=== PATIENT | female | born 1950 | race Caucasian/White ===

== ENCOUNTER 2016-09-10 13:25 | Inpatient (IN) | payer OTHER, MEDICARE ==
[~2016-09-10] VITALS: Ht 170.2 cm; Wt 60.0 kg
[~2016-09-10 13:25] MED LIST: ATOR40TA16 PO; BENA20TA PO
[2016-09-11] MEDS ORDERED: MULTTAB67 PO (14:45)
[2016-09-11] MEDS ORDERED: VITA100018 PO (14:45)
[2016-09-14] MEDS ORDERED: LACTATED RINGER'S 1000 ML IV SCH (07:15)
[2016-09-14] MEDS ORDERED: METOPROLOL TARTRATE 25 MG TAB PO PRN (07:15)
[2016-09-14] MEDS ORDERED: INSULIN HUMAN REGULAR 1,000 UNITS/10 ML VIAL SQ PRN (07:15)
[2016-09-14] MEDS ORDERED: ceFAZolin 1,000 MG/NS 100 ML IV SCH ×2 (07:15)
[2016-09-14] MEDS ORDERED: SODIUM CHLORID 0.9% 500 ML IV SCH (07:15)
[2016-09-14 07:23] VITALS: BP 167/82; PULSE 77; RESP 18; TEMP 98.1; O2SAT 99
[2016-09-14] MEDS ORDERED: GENTAMICIN SULFATE 80 MG/2 ML VIAL ONE (07:36)
[2016-09-14] MEDS ORDERED: GELFOAM SIZE 100 ONE (07:36)
[2016-09-14] MEDS ORDERED: THROMBIN (TOPICAL) 5,000 UNIT VIAL ONE (07:36)
[2016-09-14] MEDS ORDERED: LIDOCAINE 1%/EPINEPHrine 1:100,000 SOLN 20 ML VIAL ONE (07:37)
[2016-09-14] MEDS ORDERED: ACETAMINOPHEN 1000 MG/100 ML VIAL IV ONE (08:17)
[2016-09-14] MEDS ORDERED: MORPHINE SULFATE 4 MG/ML INJ IV PRN (08:30)
[2016-09-14] MEDS ORDERED: HYDROmorphone HCL PF 1 MG/ML VIAL IV PRN (08:30)
[2016-09-14] MEDS ORDERED: ACETAMINOPHEN/HYDROcodone 325 MG/5 MG TAB PO PRN (08:30)
[2016-09-14] MEDS ORDERED: NALOXONE HCL 0.4 MG/ML AMP IV PRN (08:30)
[2016-09-14] MEDS ORDERED: PROMETHAZINE INJ 25 MG/ML VIAL IM PRN (08:30)
[2016-09-14] MEDS ORDERED: ONDANSETRON HCL 4 MG/2 ML VIAL IV PRN (08:30)
[2016-09-14] MEDS ORDERED: cloNIDine HCL 0.1 MG TAB NG PRN (08:45)
[2016-09-14] MEDS ORDERED: ENALAPRILAT 1.25 MG/ML VIAL IV PUSH PRN (08:45)
--- NOTE | 2016-09-14 11:09 | PD.OP ---
Operative Report Date of Surgery: Sep 14, 2016 Preoperative Diagnosis: (1) Hydrocephalus Normal Pressure hydrocephalus Postoperative Diagnosis: (1) Hydrocephalus Normal Pressure hydrocephalus Procedure: Right frontal bear hole for ventriculoperitoneal shunt placement Anesthesia: Gen. endotracheal Surgeon: Ambrose Bar Qa Engineer(s): Haseeb Boo Operation and Findings: Procedure in detail: The patient was brought into the operating room and general endotracheal anesthesia induced without difficulty. Brown catheter, and sequential compression devices were placed. Lines were established by anesthesia. The patient was placed in the supine position on the 3080 table with the head turned towards the left on the horseshoe headrest. All extremities were appropriately padded The right side of the head, neck, chest, and abdomen were shaved with the clippers and sterilely prepped and draped. Appropriate procedure was performed with all personal present and in agreement 1% Xylocaine with epinephrine was used for local infiltration of the incision sites. The initial incision was made in a curvilinear fashion at the right frontal region approximately 3-4 cm lateral to the midline in the mid pupillary line and approximately 1 cm anterior to the coronal suture and carried sharply down to the cranium. The jacquard twine polisher operator was used to place a small bur hole and the dura was incised with the 15 blade knife and edges coagulated with the bipolar forceps. Small incision was made in the cortical surface with the bipolar. The second incision was made at the right upper quadrant of the abdomen just below the costal margin and carried sharply down to the muscle fascia which was incised transversely and the muscle fiber split revealing the peritoneum which was grasped with mosquito forceps and incised with the 15 blade knife. The peritoneal cavity was freely entered with the [place] dissector. A 4-0 Nurolon pursestring suture was placed at the peritoneal incision. The shunt passer was used to pass the distal peritoneal catheter already attached to the distal shunt valve and secured with 2-0 silk suture from the frontal scalp incision to the abdominal incision via a small third right occipital scalp incision. The valve was preset to 120 mm water pressure prior to placement, with the setting verified with preoperative x-ray. The Codman Bactiseal ventricular catheter was then passed to a depth of approximately 6 cm intracranial with clear colorless cerebrospinal fluid obtained and a single pass. Specimen of CSF was collected. The ventricular catheter was cut to the appropriate length and secured to the proximal end of the valve with the 2-0 silk tie. After spontaneous CSF flow was noted through the distal peritoneal catheter, the abdominal catheter was cut to a length of approximately 15 cm intraperitoneal length and placed in the peritoneal cavity and pursestring suture secured. All incision sites were well irrigated with antibiotic irrigation. Closure was performed with 3-0 Vicryl running for the abdominal muscle fascia and interrupted for the abdominal subcutaneous closure and scalp galeal closure. The scalp was closed with 4-0 nylon running suture with 4-0 Vicryl running for the abdominal subcuticular closure. A dressing of sterile Mastisol and Steri- Strips was placed at each incision site. The patient was taken to recovery room in stable condition. All counts were correct at the end of the case. Estimated blood loss was 50 cc Specimen of CSF was sent for routine microbiology. Ambrose Bar MD Sep 14, 2016 11:09
[2016-09-14] MEDS ORDERED: fentaNYL CITRATE 250 MCG/5 ML AMP ONE (11:11)
[2016-09-14] MEDS ORDERED: PILL SPLITTER OTHER PRN (11:30)
[2016-09-14] MEDS ORDERED: PROPOFOL 200 MG/20 ML AMP IV ONE (12:00)
[2016-09-14] MEDS ORDERED: ONDANSETRON HCL 4 MG/2 ML VIAL IV PUSH ONE (12:00)
[2016-09-14] MEDS ORDERED: NEOSTIGMINE 3 MG/3 ML SYR IV ONE (12:00)
[2016-09-14] MEDS: DOCUSATE SODIUM 100 MG CAP PO SCH ×2 (12:00→21:20)
[2016-09-14] MEDS ORDERED: PHENYLEPH/NS 1000 MCG/10 ML SYR IV ONE (12:00)
[2016-09-14] MEDS ORDERED: LACTATED RINGER'S 1000 ML INJ 1,000 ML IV ONE (12:00)
[2016-09-14] MEDS: PANTOPRAZOLE SOD 40 MG DELAYED RELEASE TAB PO SCH (12:00)
[2016-09-14] MEDS: amLODIPine BESYLATE 5 MG TAB PO SCH (12:00)
[2016-09-14] MEDS ORDERED: ePHEDrine/NS 50 MG/5 ML SYR IV ONE (12:00)
[2016-09-14] MEDS ORDERED: DO NOT ADM ANY ANTICOAGULANT DRUGS XX PRN (12:00)
[2016-09-14] MEDS ORDERED: LABETALOL HCL 100 MG/20 ML VIAL IV PUSH PRN (12:15)
[2016-09-14] MEDS ORDERED: *LABETALOL HCL 100 MG/20 ML VIAL PERIprocedural Use ONLY ONE (12:20)
[2016-09-14] MEDS: D5-1/2 NS + KCL 20 MEQ INJ 1,000 ML IV SCH ×2 (12:39→22:17)
[2016-09-14] MEDS ORDERED: *RESP: ALBUTEROL 2.5 MG/3 ML NEB (PRN) PERIprocedural Use ONLY NEB ONE (15:02)
[2016-09-14] MEDS ORDERED: *morphine SULFATE 8 MG/ML PERIprocedure ONLY ONE (15:02)
[2016-09-14 17:26] VITALS: BP 121/60; PULSE 88; RESP 16; TEMP 96.8; O2SAT 98
--- NOTE | 2016-09-14 19:20 | EKG ---
Date Performed: 09/14/2016 Time Performed: 07:28:08 PTAGE: 66 years EKG: Sinus rhythm MINIMAL VOLTAGE CRITERIA FOR LVH, CONSIDER NORMAL VARIANT BORDERLINE ECG NO PREVIOUS TRACING DOCTOR: Marcio Black Interpretating Date/Time 09/14/2016 19:18:21
[2016-09-14 21:41] VITALS: O2SAT 98
[2016-09-15] VITALS: BP 141/75; PULSE 74; RESP 20; TEMP 98; O2SAT 100
[2016-09-15] MEDS: ACETAMINOPHEN/HYDROcodone 325 MG/10 MG TAB PO PRN ×2 (04:01→09:00)
[2016-09-15 05:58] VITALS: BP 156/80; PULSE 78; RESP 22; TEMP 98.5; O2SAT 98
[2016-09-15 08:05] LABS: AUTOMATED NEUTROPHIL # 8.2 TH/MM3 (1.8-7.7); BASOPHIL % 0.2 % (0.0-2.0); EOSINOPHIL % 0.2 % (0.0-4.0); HEMO FLAGS DIFF FINAL; LYMPH % 12.1 % (9.0-44.0); LYMPHOCYTE # 1.3 TH/MM3 (1.0-4.8); MEAN CELL VOLUME 86.4 FL (80.0-100.0); MEAN CORPUSCULAR HEMOGLOBIN 28.9 PG (27.0-34.0); MEAN CORPUSCULAR HGB CONC 33.5 % (32.0-36.0); MONO % 9.5 % (0.0-8.0); PLATELET COUNT 196 TH/MM3 (150-450); RED BLOOD COUNT 4.17 MIL/MM3 (4.00-5.30); RED CELL DISTRIBUTION WIDTH 13.6 % (11.6-17.2); WHITE BLOOD COUNT 10.5 TH/MM3 (4.0-11.0)
[2016-09-15 08:16] LABS: BICARBONATE 27.1 MEQ/L (21.0-32.0); POTASSIUM 3.4 MEQ/L (3.5-5.1)
[2016-09-15] MEDS: PANTOPRAZOLE SOD 40 MG DELAYED RELEASE TAB PO SCH (08:58)
[2016-09-15] MEDS: DOCUSATE SODIUM 100 MG CAP PO SCH (08:58)
[2016-09-15] MEDS: amLODIPine BESYLATE 5 MG TAB PO SCH (08:59)
[2016-09-15] MEDS ORDERED: LISINOPRIL 20 MG TAB PO SCH (09:00)
[2016-09-15] MEDS ORDERED: CHOLECALCIFEROL (VIT D3) 1000 UNIT TAB PO SCH (09:00)
[2016-09-15] MEDS ORDERED: MULTIVITAMIN TAB PO SCH (09:00)
[2016-09-15] MEDS: D5-1/2 NS + KCL 20 MEQ INJ 1,000 ML IV SCH (09:01)
[2016-09-15 09:22] VITALS: O2SAT 97
[2016-09-15 09:31] VITALS: BP 135/76; PULSE 61; RESP 18; TEMP 98.1; O2SAT 100
--- NOTE | 2016-09-15 09:56 | RADRPT ---
EXAM DATE/TIME: 09/15/2016 09:29 [facility] COMPARISON: No previous studies available for comparison. INDICATIONS : Post op ventricular shunt placement. RADIATION DOSE: 35.79 CTDIvol (mGy) MEDICAL HISTORY : Hypertension. SURGICAL HISTORY : None. ENCOUNTER: Initial ACUITY: 1 day PAIN SCALE: 0/10 LOCATION: cranial TECHNIQUE: Multiple contiguous axial images were obtained of the head. Using automated exposure control and adj ustment of the mA and/or kV according to patient size, radiation dose was kept as low as reasonably a chievable to obtain optimal diagnostic quality images. FINDINGS: CEREBRUM: There is a ventriculostomy tube in place from the right frontal approach with the tip extending into the left lateral ventricle. There is a small focus of extraluminal air are seen at the superior media l right frontal region. The ventricles are dilated. There is mild sulcal widening. The basal cisterns are open. No evidence of midline shift, mass lesion, cerebral hemorrhage or acute infarction. No ex tra-axial fluid collections are seen. POSTERIOR FOSSA: There is a small 3 mm focal area of increased density at the inferior medial left cerebellar hemisphe re representing either a small area of calcification or punctate area of hemorrhage without mass effe ct. The cerebellum and brainstem are otherwise intact. The 4th ventricle is midline. The cerebellop ontine angle is unremarkable. EXTRACRANIAL: The visualized portion of the orbits is intact. Air is seen in the soft tissues of the posterior righ t upper neck and the right lateral scalp around the shunt tubing. SKULL: The calvaria is intact. No evidence of skull fracture. CONCLUSION: 1. Shunt tubing in place from the right frontal approach with tip in the left lateral ventricle. 2. The ventricles are dilated. 3. Small 3 mm punctate increased density at the left cerebellar hemisphere representing either a smal l area of calcification or hemorrhage without mass effect. Cosme Liao MD on September 15, 2016 at 9:48 Board Certified Radiologist. This report was verified electronically.
--- NOTE | 2016-09-15 10:15 | EKG ---
Date Performed: 09/14/2016 Time Performed: 15:14:43 PTAGE: 66 years EKG: Sinus rhythm MINIMAL VOLTAGE CRITERIA FOR LVH, CONSIDER NORMAL VARIANT MODERATE ST DEPRESSION Compared to the pre vious tracing, ST changes are new, cannot exclude ischemia ABNORMAL ECGPREVIOUS TRACING : 09/14 07.28 DOCTOR: Riley Maya Interpretating Date/Time 09/15/2016 10:14:10
[2016-09-15 12:22] VITALS: BP 156/87; PULSE 78; RESP 18; TEMP 96.8; O2SAT 99
--- NOTE | 2016-09-15 12:52 | HHI.DCPOC ---
Discharge Care Plan Diagnosis: (1) Hydrocephalus Your Health Problems Are: Difficulty with ADL Incision/Drains Exercise Tolerance Goals to Promote Your Health * To prevent worsening of your condition and complications * To maintain your health at the optimal level Directions to Meet Your Goals Take your medications as prescribed Follow your dietary instruction Follow activity as directed Keep your appointments as scheduled Take your immunizations and boosters as scheduled If your symptoms worsen call your PCP, if no PCP go to Urgent Care Center or Emergency Room Smoking is Dangerous to Your Health. Avoid second hand smoke Call the 24-hour hour crisis hotline for domestic abuse at Ambrose Bar MD Sep 15, 2016 12:52
--- NOTE | 2016-09-15 12:58 | HHI.DS ---
Discharge Summary Admission Date Sep 14, 2016 at 06:30 Discharge Date: Sep 15, 2016 Admitting Diagnosis CBC/BMP: 09/15/16 0716 09/15/16 0716 Significant Findings Laboratory Tests Test 09/15/16 07:16 Neutrophils (%) (Auto) 78.0 % (16.0-70.0) Monocytes (%) (Auto) 9.5 % (0.0-8.0) Neutrophils # (Auto) 8.2 TH/MM3 (1.8-7.7) Monocytes # (Auto) 1.0 TH/MM3 (0-0.9) Potassium Level 3.4 MEQ/L (3.5-5.1) Blood Urea Nitrogen 3 MG/DL (7-18) Estimat Glomerular Filtration 79 ML/MIN (>89) Rate Random Glucose 108 MG/DL (74-106) Pt Condition on Discharge: Good Discharge Disposition: Discharge Home Discharge Instructions DIET: Follow Instructions for: As Tolerated, No Restrictions Activities to Avoid: Lifting/Bending, Strenuous Activity Ambrose Bar MD Sep 15, 2016 12:58
--- NOTE | 2016-09-15 12:59 | HHI.NSPN ---
Exam Results Vital Signs Date Time Temp Pulse Resp B/P Pulse Ox O2 Delivery O2 Flow Rate FiO2 09/15/16 12:22 96.8 78 18 156/87 99 09/15/16 09:22 21 09/14/16 21:41 Nasal Cannula 2.00 Intake and Output 09/14/16 09/14/16 09/15/16 08:00 16:00 00:00 Intake Total 1285 ml 943 ml Output Total 1500 ml 1500 ml Balance -215 ml -557 ml Amrbose Bar MD Sep 15, 2016 12:59
[2016-09-18] MEDS ORDERED: HYDR-2374 PO (13:21)
[2016-10-30] MEDS ORDERED: NAME10TA PO (09:21)
== END 2016-09-15 14:05 | disposition home or self-care (01) | DRG 33 ==
LOC: HSDI 09-14 06:30 → EDSTATUS 09-14 08:30 → N05A 09-14 16:33
PROVIDERS: ADMIT Neurological Surgery; ATTEND Neurological Surgery
PROC: 00160J6 Bypass Cerebral Ventricle to Peritoneal Cavity with Synthetic Substitute, Open Approach (ICD-10-PCS; principal; 2016-09-14 08:20)
DX: G91.2 (Idiopathic) normal pressure hydrocephalus (principal); F03.90 Unspecified dementia, unspecified severity, without behavioral disturbance, psychotic disturbance, mood disturbance, and anxiety; R63.6 Underweight; Z68.20 Body mass index [BMI] 20.0-20.9, adult; Z87.891 Personal history of nicotine dependence
CPT/HCPCS: 70450; 80048; 85025; 87070; 87205; 93005; 94150; 94664; J0131; J0690; J1580; J2270; J2370; J2405; J2710; J3010; J3480; J7120; J7613